=== PATIENT | male | born 1965 | race Caucasian/White ===

== ENCOUNTER 2018-12-12 09:24 | Inpatient (IN) ==
[2018-12-12] MEDS ORDERED: Albuterol 2.5 MG/3 ML NEBULIZER IH ONE (10:00)
[2018-12-12] MEDS ORDERED: CeFAZolin Syr 2,000MG/20 ML 2,000 MG/20 ML SYRINGE IVPB ONE (10:00)
[2018-12-12] MEDS: Ringers Solution, Lactated 1,000 ML IVC SCH ×2 (10:50→21:00)
--- NOTE | 2018-12-12 10:58 | Anesthesia Evaluation PreOp ---
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) Other Medical History: Diabetes Type II, GERD Anesthesia History: Past Anesthesia, Problems (aspiration) Alcohol Use: none Drug use: none Medications and Allergies DULoxetine [Cymbalta] 60 mg PO DAILY 05/18/15 [History] Dextroamphetamine Sulfate [Dexedrine] 15 mg PO DAILY 05/18/15 [History] Gabapentin [Neurontin] 600 mg PO BID 05/18/15 [History] Torsemide [Demadex] 20 mg PO BID 05/18/15 [History] Ascorbate Calcium [Vitamin C] 500 mg PO DAILY 08/31/15 [History] Potassium Chloride [K-Tab ER] 20 meq PO BID 08/31/15 [History] Albuterol Sulfate [Proair Hfa] 2 puff IH Q4-6H PRN 12/12/18 [History] Amlodipine Besylate 2.5 mg PO DAILY 12/12/18 [History] Budesonide Neb [Pulmicort Neb] 0.25 mg PO BID PRN 12/12/18 [History] Calcium Carbonate [Calcium] 500 mg PO DAILY 12/12/18 [History] Cholecalciferol (Vitamin D3) [Vitamin D] 2,000 unit PO DAILY 12/12/18 [History] Ferrous Gluconate 324 mg PO DAILY 12/12/18 [History] Formoterol Fumarate [Perforomist] 20 mcg IH BID PRN 12/12/18 [History] Hydromorphone (Pf) [Hydromorphone Intrathecal Pump] 1 each IT AD 12/12/18 [History] Lansoprazole [Prevacid] 15 mg PO DAILY 12/12/18 [History] Losartan Potassium 50 mg PO DAILY 12/12/18 [History] Metformin HCl [Fortamet] 1,000 mg PO BID 12/12/18 [History] Metoprolol Succinate [Toprol Xl] 100 mg PO BID 12/12/18 [History] Testosterone 4 pump TP DAILY 12/12/18 [History] Tiotropium [place] [Spiriva Respimat] 2 puff PO DAILY 12/12/18 [History] Allergy/AdvReac Type Severity Reaction Status Date / Time silver Allergy Blister Verified 12/12/18 11:14 terbinafine Allergy Rash Verified 12/12/18 11:14 MAXORB Allergy Blister Uncoded 12/12/18 11:14 silverdine Allergy Blister Uncoded 12/12/18 11:14 - Meds/Allergy Pre-op Review Medications Reviewed: Yes Allergies Reviewed: Yes Beta Blockers on Current Med List: Yes If Beta Blockers taken, Date/Time (Last Dose taken): 12/12/2018 at 0600 Anesthesia Results - Labs Laboratory Tests 12/02/18 12/02/18 12/04/18 09:34 09:34 10:35 WBC 6.5 Hgb 10.4 L Hct 33.5 L Plt Count 286 PT 10.5 INR 0.9 APTT 35.4 Sodium 139 Potassium 4.2 BUN 19 Creatinine 0.66 L - Imaging EKG: report reviewed (12/04/2018 sinus rhythm 4 12/04/2018 SINUS RHYTHM) Anesthesia Exam O2 Sat Height 1.8 m Height 1.8 m Weight 111.13 kg Weight 111.13 kg O2 Sat by Pulse Oximetry 95 O2 Sat by Pulse Oximetry 95 O2 Sat by Pulse Oximetry 95 Vital Signs Temp Pulse Resp BP Pulse Ox 97.8 F 82 18 112/74 95 12/12/18 10:00 12/12/18 10:00 12/12/18 10:00 12/12/18 10:00 12/12/18 10:00 Blood Glucose* 122 Height: 5'11'' Weight: 245 lbs NPO (# of Hours): 8 Pain Scale: 6 (left arm) Pain Scale Used: Numeric (1 - 10) - HEENT Pupil (Motor): EOMI Mallampati: II Teeth: Edentulous Denture Type: Upper: Complete, Lower: Complete Oral Opening: Greater than 3 - CERAMICS ENGINEER LOC: Oriented CERAMICS ENGINEER Motor: Normal RUE, Normal RLE, Normal LLE, Normal Face, Deficit LUE CERAMICS ENGINEER Sensory: Normal: RUE, Face, Deficit: LUE (hypersensitive), RLE, LLE - Cardiac Rhythm: Regular Murmur: None - Pulmonary Breath Sounds: bilateral Clear Respiratory Effort: Symmetrical Anesthesia Assess/Plan ASA Score: 4 Level of consciousness: Cooperative, Oriented, Tranquil Anesthetic Plan: General Monitoring Plan: Standard Monitors Recovery Plan: PACU
[2018-12-12] MEDS ORDERED: Lidocaine -MPF 4% 5 ML AMPUL ONE (11:59)
[2018-12-12] MEDS ORDERED: *HR* Succinylcholine 200 MG/10 ML VIAL IVP ONE ×2 (11:59→17:39)
[2018-12-12] MEDS ORDERED: Lidocaine -MPF 2% 2 ML VIAL ONE (11:59)
[2018-12-12] MEDS ORDERED: *HR* Propofol 200 MG/20 ML VIAL IVP ONE ×3 (12:00→17:39)
[2018-12-12] MEDS ORDERED: *HR* FentaNYL (PF) 100 MCG/2 ML VIAL ONE (12:00)
[2018-12-12] MEDS ORDERED: *HR* Midazolam HCl 2 MG/2 ML VIAL ONE (12:00)
[2018-12-12] MEDS ORDERED: Ondansetron 4 MG/2 ML VIAL IVP ONE (12:09)
[2018-12-12] MEDS ORDERED: *HR* HYDROmorphone (PF) 1 MG/ML SYRINGE IVP PRN (12:09)
[2018-12-12] MEDS ORDERED: *HR* OxyCODONE Immed Rel 5 MG TABLET PO PRN (12:09)
[2018-12-12] MEDS ORDERED: Bacitracin 50,000 UNIT, Polymyxin B Sulfate 500,000 UNIT, Sodium Chloride IRRigation 1,... IR ONE (12:35)
--- NOTE | 2018-12-12 14:24 | History & Physical Report ---
Date of Encounter: 12/12/18 Time of Encounter: 14:20 24 Hour HP Update - Instructions Instructions: If the History and Physical is less than 30 days old and was completed prior to A.M. admission and or procedure and has NOT been updated on calendar day of procedure please complete this update prior to performing procedure. - Update Patient reports changes in Medical Condition: No Changes in examination, assessment, or condition: No Changes in Medication: No Preop tests/diagnostics Reviewed: Yes Pre-Op MRSA Screen: Negative Surgery Remains Indicated: Yes Consent for Planned Operative Procedure(s) Verified: Yes - Pre-Operative Checklist Preoperative Checklist Indicated: Yes Prophylactic Antibiotic Ordered: Yes Home Medications Include Beta Lesa: Yes Beta Lesa Taken Today (Day of Surgery): Yes Beta Lesa Taken Yesterday (Day Prior to Surgery): Yes Is VTE Prophylaxis Indicated?: Yes (EPCD's)
[2018-12-12] MEDS ORDERED: Lidocaine/EPI 1:100k 2% 20 ML VIAL ONE (14:28)
[2018-12-12] MEDS ORDERED: Isovue-M 200 10 ML VIAL ONE (14:35)
[2018-12-12] MEDS ORDERED: EPHEDrine 50 MG/ML VIAL ONE (15:29)
[2018-12-12] MEDS ORDERED: *HR* PHENYLEPHRINE 1,000 MCG/10 ML SYRINGE IVP ONE (15:55)
[2018-12-12] MEDS ORDERED: Ondansetron 4 MG/2 ML VIAL IVP PRN (17:22)
[2018-12-12] MEDS ORDERED: Naloxone 0.4 MG/ML INJ IVP PRN (17:24)
[2018-12-12] MEDS ORDERED: Acetaminophen 325 MG TABLET PO PRN (17:24)
[2018-12-12] MEDS ORDERED: Naloxone 0.4 MG/ML INJ ONE ×2 (17:27→19:49)
--- NOTE | 2018-12-12 17:30 | Internal Med History&Physical ---
Date of Encounter: 12/12/18 Time of Encounter: 17:27 Internal Medicine - H&P: HPI Chief complaint: Respiratory distress Admitted From: Direct Admit Plans for Post Hospital Care: Home History of present illness: Mr. Vargas is a 53 year old male with history of COPD on chronic O2 2-3 L, diabetes, hypertension, chronic venous insufficiency, GERD, chronic back pain, who presented to the outpatient surgery suite and underwent replacement on intrathecal pump by Dr. Miranda. He underwent general anesthesia and was intubated for the procedure. Apparently was extubated post op. Was re-intubated as he was hypoxic. Eventually extubated again but remained hypoxic and not waking up. We were called to admit the patient to the hospitalist service. I went to evaluate the patient and found out that he had received 100 g of fentanyl as well as some IV Versed although not exactly sure how much. I asked that the patient be given Narcan and he was given a couple doses with some response. He was agitated when he woke up but was not following commands. He continued to be drowsy and at that point I asked to give another dose of Narcan as well as a dose of 0.2 mg flumazenil. In the meantime, I asked for an ABG and it came back with a PH of 7.08 and pCO2 of 122, pO2 78 and bicarb 36. I thought about intubating him at that point and asked for it to be done. By the time everything was set up the patient was much more awake and less agitated and his heart rate was improving and he was following commands on bipap. At that point, I asked for a repeat ABG before we intubate. Past Med Surg Social Fam HX - Past Medical History Medical history: asthma, COPD, diabetes, GERD, hyperlipidemia, hypertension, other Additional medical history: RSD, home 02, CPAP, SENA, vit D deficiency,. Emphysema. fatty liver Psychiatric history: depression - Past Surgical History Surgical History: cholecystectomy, other Additional surgical history: pain pump-dilaudid, left wrist sx, stimulator - Social History Smoking Status: Never smoker Smokeless Tobacco Status: No Alcohol use: none Drug use: none - Family History Father Living Status: Still Living Hx Family Cardiac Disorders: Yes Hx Family Endocrine Disorder: Yes Mother Living Status: Internal Medicine - H&P: Meds DULoxetine [Cymbalta] 60 mg PO DAILY 05/18/15 [History] Gabapentin [Neurontin] 600 mg PO BID 05/18/15 [History] RX: Dextroamphetamine Sulfate [Dexedrine] 15 mg PO DAILY 05/18/15 [History] RX: Torsemide [Demadex] 20 mg PO BID 05/18/15 [History] RX: Ascorbate Calcium [Vitamin C] 500 mg PO DAILY 08/31/15 [History] RX: Potassium Chloride [K-Tab ER] 20 meq PO BID 08/31/15 [History] Albuterol Sulfate [Proair Hfa] 2 puff IH Q4-6H PRN 12/12/18 [History] Amlodipine Besylate 2.5 mg PO DAILY 12/12/18 [History] Calcium Carbonate [Calcium] 500 mg PO DAILY 12/12/18 [History] Cholecalciferol (Vitamin D3) [Vitamin D] 2,000 unit PO DAILY 12/12/18 [History] Ferrous Gluconate 324 mg PO DAILY 12/12/18 [History] Formoterol Fumarate [Perforomist] 20 mcg IH BID PRN 12/12/18 [History] Hydromorphone (Pf) [Hydromorphone Intrathecal Pump] 1 each IT AD 12/12/18 [History] Lansoprazole [Prevacid] 15 mg PO DAILY 12/12/18 [History] Losartan Potassium 50 mg PO DAILY 12/12/18 [History] Metformin HCl [Fortamet] 1,000 mg PO BID 12/12/18 [History] Metoprolol Succinate [Toprol Xl] 100 mg PO BID 12/12/18 [History] RX: Budesonide Neb [Pulmicort Neb] 0.25 mg PO BID PRN 12/12/18 [History] Testosterone 4 pump TP DAILY 12/12/18 [History] Tiotropium [place] [Spiriva Respimat] 2 puff PO DAILY 12/12/18 [History] Allergy/AdvReac Type Severity Reaction Status Date / Time silver Allergy Blister Verified 12/12/18 11:14 terbinafine Allergy Rash Verified 12/12/18 11:14 MAXORB Allergy Blister Uncoded 12/12/18 11:14 silverdine Allergy Blister Uncoded 12/12/18 11:14 ROS unobtainable: due to mental status All Systems PM: A 10-system review of systems was performed and is negative for pertinent findings except as documented above in the HPI. - Constitutional Vitals: Temp Pulse Resp BP Pulse Ox 99.3 F 105 29 162/97 88 12/12/18 17:13 12/12/18 17:23 12/12/18 17:23 12/12/18 17:23 12/12/18 17:23 Exam: GEN: Severely distressed and agitated HEENT: AT, NC, No cyanosis, oral mucosa is moist, No JVD Lymphatics: No lymphadenoapthy Eyes: Extrocular muscles intact, anicteric CVS:Tachycardic. S1, S2, No m/r/g RESP: Significantly Diminished with scattered crackles. ABD: Soft, NT, ND, +BS EXT: 1+ edema, however these are wrapped. No rashes, 2+ DP NEURO: Confused and not following commands. Psych: Cooperative, Not anxious or depressed Internal Med - H&P Results - Impressions ITS Impressions Chest X-Ray 12/12/18 00:00 IMPRESSION: 1. Endotracheal tube in satisfactory position. 2. Findings of mild pulmonary edema with trace pleural effusions and pulmonary vascular indistinctness. D/ / 12/12/2018 17:17:33 Felix Soliz MD / josh Interpreting Provider: Felix Soliz MD - Assessment and Plan (1) Acute and chronic respiratory failure ([id number]) Current Visit: Yes Status: Acute Assessment and plan: Patient has baseline bad COPD on chronic O2. He may have been over medicated with sedatives for anesthesia. I have given him 3 total doses of IV narcan and one dose of IV flumazenil .2 mg. He is waking up and is starting to follow commands. Currently on Bipap and satting well in the upper 90s . Initial ABG showed PH 7.08 and pCO2 122. Will get a repeat ABG. If not improving, will intubate him. Patient seems to have baseline bad COPD. Previous PH was normal despite CO2 in the 90s. So I am guessing this CO2 of 122 is not too far from his baseline and I am hoping his repeat ABG would improve. CXR showed some pulmonary vascular congestion. Will give a dose of IV lasix 40 mg x1. 125 mg IV solumedrol x1. consult pulmonary. Basic labs ordered including lactic acid, BNP, BMP, CBC, mag. Qualifiers: Respiratory failure complication: unspecified whether with hypoxia or hypercapnia Qualified Code(s): J96.20 - Acute and chronic respiratory failure, unspecified whether with hypoxia or hypercapnia (2) COPD (chronic obstructive pulmonary disease) Current Visit: No Status: Acute Assessment and plan: With exacerbation. Will give 125 mg IV solu-medrol once. Nebs. Bipap for now. f/u on ABG Qualifiers: COPD type: unspecified COPD Qualified Code(s): J44.9 - Chronic obstructive pulmonary disease, unspecified (3) Diabetes mellitus Current Visit: Yes Status: Acute Assessment and plan: SSI. 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 Will give IV hydralazine 10 mg x1 and resume home meds Qualifiers: Hypertension type: essential hypertension Qualified Code(s): I10 - Essential (primary) hypertension (5) Venous insufficiency of both lower extremities Current Visit: Yes Status: Acute Assessment and plan: chronic. Has Lower ext edema. (6) DVT prophylaxis Current Visit: No Status: Acute Assessment and plan: heparin SQ - Time Spent With Patient Critical care time spent 75 minutes
[2018-12-12] MEDS ORDERED: Furosemide 40 MG/4 ML VIAL IVP ONE (17:33)
[2018-12-12 17:34] LABS: ABG Base Excess 2 mEq/L (-2 to 3); ABG HCO3 36 mEq/L (21-27); ABG Oxygen Saturation 87 % (95-98); ABG PCO2 122 mmHg (35-45); ABG PH 7.08 pH Units (7.32-7.45); ABG PO2 78 mmHg (85-104); ABG TCO2 40 mEq/L (20-26); Blood Gas PEEP 6 cm H2O
[2018-12-12] MEDS ORDERED: methylPREDNISolone 125 MG/2 ML VIAL IVP ONE (17:36)
[2018-12-12] MEDS ORDERED: Dextrose Gel 15 GM/37.5 ML TUBE PO PRN ×2 (17:38)
[2018-12-12] MEDS ORDERED: *HR* Dextrose 50 % in Water (Syg) 50 ML SYRINGE IVP PRN (17:38)
[2018-12-12] MEDS ORDERED: D5% in Water 1,000 ML IVC PRN (17:38)
[2018-12-12] MEDS ORDERED: MethylPREDNISolone 40 MG/ML VIAL ONE ×2 (17:46→17:48)
[2018-12-12] MEDS ORDERED: Furosemide 40 MG/4 ML VIAL ONE (17:46)
--- NOTE | 2018-12-12 17:49 | Discharge Summary ---
Outpatient Proc Discharge Plan - Plan Additional Instructions: WOUND CARE INSTRUCTIONS FOLLOWING IMPLANTATION 1. Remove the TOP dressing ONLY tomorrow. The BOTTOM dressing is PRINEO. This MESH acts like a "scab" and will fall off on its own. Do not scrub this off. If the mesh peels up on the edge, carefully TRIM the loose end with a small scissor, but BE CARE NOT TO CONTAMINATE THE SURGICAL WOUND. 2. Do not allow direct pressure over the wound. Please keep the wound padded while seated or laying flat. A soft pillow while driving or sitting will suffice. 3. YOU MAY SHOWER TOMORROW, but do not soak the wound. No baths, pools or hot tubs until physician clearance given. Cleanse the wound with gently with antibacterial soap (i.e., DIAL GOLD bar soap), rinse and pat dry lightly with a clean towel. 4. Use the pain medication ONLY DIRECTED. MAKE SURE YOU READ THE LABEL ON THE PILL BOTTLE. DO NOT USE OTHER PAIN MEDICATION IN YOUR POSSESSION UNLESS YOU ARE INSTRUCTED TO DO SO BY DR. WISE. Do not use the pain medication and drive or operated heavy machinery. 5. FOR DEVICE RELATED ISSUES, please contact your company sales representative cash registers. If you ever are not acknowledged by a company for any reason, PLEASE NOTIFY OUR OFFICE. IF FOR ANY REASON YOU EXPERIENCE AN EMERGENCY, CALL 911 OR GO TO THE NEAREST EMERGENCY ROOM If redness, swelling, fever, chills or malaise develops, please call our office IMMEDIATELY OR GO TO THE NEAREST EMERGENCY ROOM. If hives, itching or difficulty breathing occurs CALL 911 Please keep scheduled follow up appointment for the wound check. [facility] [phone] [facility] [phone] [facility] [address] [place] [address] [address] [place], [place] [address] [facility] [address] [place], [place] [address] [phone] [facility] [address] [place], [place] [address] [phone] [facility] [address] [place], [place] [address] [phone] [facility] [address] [place] [address] [place], [place] [address] [phone] [place], [place] [id number] [phone] [facility] [address] [place], [place] [address] [phone] [facility] - [address] [address] [phone] Home Medications: DULoxetine [Cymbalta] 60 mg PO DAILY 05/18/15 [History] Dextroamphetamine Sulfate [Dexedrine] 15 mg PO DAILY 05/18/15 [History] Gabapentin [Neurontin] 600 mg PO BID 05/18/15 [History] Torsemide [Demadex] 20 mg PO BID 05/18/15 [History] Ascorbate Calcium [Vitamin C] 500 mg PO DAILY 08/31/15 [History] Potassium Chloride [K-Tab ER] 20 meq PO BID 08/31/15 [History] Albuterol Sulfate [Proair Hfa] 2 puff IH Q4-6H PRN 12/12/18 [History] Amlodipine Besylate 2.5 mg PO DAILY 12/12/18 [History] Budesonide Neb [Pulmicort Neb] 0.25 mg PO BID PRN 12/12/18 [History] Calcium Carbonate [Calcium] 500 mg PO DAILY 12/12/18 [History] Cholecalciferol (Vitamin D3) [Vitamin D] 2,000 unit PO DAILY 12/12/18 [History] Ferrous Gluconate 324 mg PO DAILY 12/12/18 [History] Formoterol Fumarate [Perforomist] 20 mcg IH BID PRN 12/12/18 [History] Hydromorphone (Pf) [Hydromorphone Intrathecal Pump] 1 each IT AD 12/12/18 [His tory] Lansoprazole [Prevacid] 15 mg PO DAILY 12/12/18 [History] Losartan Potassium 50 mg PO DAILY 12/12/18 [History] Metformin HCl [Fortamet] 1,000 mg PO BID 12/12/18 [History] Metoprolol Succinate [Toprol Xl] 100 mg PO BID 12/12/18 [History] Testosterone 4 pump TP DAILY 12/12/18 [History] Tiotropium [place] [Spiriva Respimat] 2 puff PO DAILY 12/12/18 [History]
--- NOTE | 2018-12-12 17:53 | Pain Management Procedure Note ---
Date of procedure: 12/12/18 Pre-op diagnosis: Complex regional pain syndrome type I left upper extremity Post-op diagnosis: same Procedure: Preoperative diagnosis: Complex regional pain syndrome type I left upper extremity Postoperative diagnose: Same Procedure: 1. Replacement of intrathecal drug delivery system pump (SynchroMed 2, Medtronic) Indication: The patient should undergo intrathecal pump replacement because the patient benefits as evidenced by improved pain control but function is limited due to the underlying disease process. The patient desires reimplantation of the new pump as the current system pump is at end of life. There are no contraindications to the procedure such as sepsis or coagulopathy. Clinic note: 53-year-old with a worker's comp related injury who has an intractable case of complex regional pain syndrome of the left upper extremity. The patient is on multimodal therapy to include spinal cord stimulation as well as intrathecal drug delivery. Patient's past medical history, surgical history, medications and allergies were all reviewed prior to implantation. The risks, benefits and alternatives to the procedure were explained to the patient previously and informed consent was obtained. Procedure in detail: Patient was taken to the operating room and connected to standard ASA monitors. The patient's anesthesia care team induced general anesthesia. Patient was then rotated into a prone padded position on the pain management operation table. The patient was sterilely prepped and draped in a standard surgical fashion. Timeout was then performed per hospital protocol. Fluoroscopy was used to confirm site of indwelling intrathecal drug delivery pump. The old scar was identified and a line was made over top of it. 10 lidocaine 2% with 1 and 200,000 epinephrine was administered into the subcutaneous tissue into the area. A 15 blade was used to make a horizontal incision over the old scar. Weitlaners and Metzenbaums were used to blunt dissected and expose the pump. The pump was then explanted and sent to pathology as a gross specimen. The catheter was then disconnected. Free flow of cerebral spinal fluid was noted. 0.2 mL of spinal fluid was drained. I then obtained the prefilled new SynchroMed 2 pump containing 20 mL of opioid therapy and attached at the catheter infusion port. The wound was copiously irrigated with antibiotic impregnated normal saline. I then implanted the pump after I copiously irrigated the pocket. Primary closure ensued. 0-Stratofix and 2-0 Stratofix was used to close the deep and superficial fascial layers, respectively. A 4-0 monocryl closed the skin layer. Prineo was used to seal the skin after it was cleansed and draped. After dried, a sterile 4x4 and tegaderm was used to cover the area. The patient was then undraped, gradually extubated and taken to rec overy where the patient was observed. The plan is to keep the follow up wound check appointment. Anesthesia: GETA Surgeon: Gonzales Miranda Was there an assistant technician present: No Estimated blood loss (cc): 5 Specimen: [id number] Pathology: none sent Condition: stable Disposition: PACU
[2018-12-12 18:08] LABS: Basophils # 0.1 K/mcL (0.0-0.2); Basophils % 0.4 %; Eosinophils # 0.1 K/mcL (0.0-0.6); Immature Granulocytes % 0.8 % (0-4); Immature Platelets 3.2 % (1.1-6.1); Lymphocytes # 1.4 K/mcL (0.6-4.6); Mean Corpuscular HGB Conc 30.6 g/dL (31.6-35.5); Mean Platelet Volume 9.6 fL (9.4-12.4); Monocytes # 0.8 K/mcL (0.0-1.3); Monocytes % 6.2 %; Neutrophils # 10.2 K/mcL (1.6-8.9); Platelet Count 346 K/mcL (140-400); Red Blood Count 3.79 M/mcL (4.19-5.50); Red Cell Distribution Width 13.4 % (11.5-14.5); Segmented Neutrophils % 80.6 %
[2018-12-12 18:12] LABS: ABG Base Excess 8 mEq/L (-2 to 3); ABG HCO3 39 mEq/L (21-27); ABG Oxygen Saturation 89 % (95-98); ABG PCO2 84 mmHg (35-45); ABG PH 7.27 pH Units (7.32-7.45); ABG PO2 69 mmHg (85-104); ABG TCO2 41 mEq/L (20-26); Blood Gas PEEP 8 cm H2O; Blood Gas Respiration Rate 10; Blood Gas VT 550 cc
--- NOTE | 2018-12-12 18:33 | Anesthesia Evaluation Post Op ---
Date of Encounter: 12/12/18 Time of Encounter: 18:27 - Vital Signs Vital Signs: Vital Signs/O2 Sat, Most Current Temp Pulse Resp BP Pulse Ox 98 F 93 20 129/79 97 12/12/18 17:53 12/12/18 18:03 12/12/18 18:03 12/12/18 18:03 12/12/18 18:03 Laboratory Tests 12/12/18 18:09 ABG pH 7.27 L D ABG pCO2 84 H* D ABG pO2 69 L ABG HCO3 39 H ABG Total CO2 41 H ABG O2 Saturation 89 L ABG Base Excess 8 H Blood Gas improved from pH 7.08 drawn earlier Laboratory Tests 12/12/18 12/12/18 17:30 18:09 ABG pH 7.08 L* 7.27 L D - Lungs Lungs: Wheezes - Airway Airway: Non-obstructed - Cardiovascular Regular Rate - Mental Status Mental Status: Alert & Oriented, Answers Appropriately - Pain Pain Scale: 0 Pain Scale used: Numeric (1 - 10) - Nausea Vomiting Nausea Vomiting: Not Present - Hydration Hydration: NPO, Giraldo catheter - Discharge PostOp Status: Transfer Patient to floor (Patient to be transferred on BIPAP to [facility])
[2018-12-12] MEDS: Insulin LISPRO 300 UNITS/3 ML VIAL SQ SCH ×2 (19:10→23:12)
[2018-12-12] MEDS ORDERED: 0.9 % Sodium Chloride 500 ML IVC ONE (19:21)
[2018-12-12 19:25] LABS: BUN/Creatinine Ratio 22 (6-26); Blood Urea Nitrogen 19 mg/dL (6-20); Calcium 8.7 mg/dL (8.6-10.3); Carbon Dioxide 27 mEq/L (23-29); Chloride 93 mEq/L (98-107); Glucose 255 mg/dL (70-105); Magnesium 1.5 mg/dL (1.6-2.6); Osmolality,Calculated 299 (280-300); Potassium 3.7 mEq/L (3.5-5.1); Sodium 139 mEq/L (136-145); eGFR For Non-African Americans > 60 (> 60)
[2018-12-12] MEDS ORDERED: 0.9 % Sodium Chloride 500 ML ONE (19:31)
--- NOTE | 2018-12-12 19:48 | Anesthesia Progress Note ---
Date of Encounter: 12/12/18 Time of Encounter: 17:15 Anesthesia Note - Note Note: Patient semi-combative, desaturating, and not following commands. 200 mcg naloxone given in 2 divided doses over a period of 3 min given + 0.2mg flumazenil. Noticeable improvement in patient's mental status. 12/12/18 19:46 Reason for Cancellation: Other
[2018-12-12] MEDS: Ipratropium/Albuterol Neb 3 ML IH SCH (21:38)
[2018-12-12] MEDS: *HR* Heparin 5,000 UNIT/ML VIAL SQ SCH (22:15)
[2018-12-12] MEDS: methylPREDNISolone 125 MG/2 ML VIAL IVP SCH (23:02)
[2018-12-13] MEDS: Ipratropium/Albuterol Neb 3 ML IH SCH ×2 (04:33→11:31)
[2018-12-13 05:51] LABS: Hematocrit 36.2 % (37.5-50.1); Hemoglobin 11.5 g/dL (12.9-16.9); Immature Granulocytes % 0.5 % (0-4); Lymphocytes # 0.8 K/mcL (0.6-4.6); Lymphocytes % 12.5 %; Mean Corpuscular HGB Conc 31.8 g/dL (31.6-35.5); Mean Corpuscular Hemoglobin 29.2 pg (28.0-33.3); Mean Corpuscular Volume 91.9 fL (83.0-100.0); Monocytes # 0.1 K/mcL (0.0-1.3); Monocytes % 1.4 %; Neutrophils # 5.6 K/mcL (1.6-8.9); Platelet Count 329 K/mcL (140-400); Red Blood Count 3.94 M/mcL (4.19-5.50); Red Cell Distribution Width 13.5 % (11.5-14.5); Segmented Neutrophils % 85.6 %
[2018-12-13 06:04] LABS: BUN/Creatinine Ratio 23 (6-26); Blood Urea Nitrogen 17 mg/dL (6-20); Calcium 8.9 mg/dL (8.6-10.3); Carbon Dioxide 38 mEq/L (23-29); Chloride 93 mEq/L (98-107); Glucose 210 mg/dL (70-105); Magnesium 1.9 mg/dL (1.6-2.6); Osmolality,Calculated 294 (280-300); Potassium 3.8 mEq/L (3.5-5.1); Sodium 138 mEq/L (136-145); eGFR For Non-African Americans > 60 (> 60)
[2018-12-13] MEDS: *HR* Heparin 5,000 UNIT/ML VIAL SQ SCH (06:17)
[2018-12-13] MEDS: Insulin LISPRO 300 UNITS/3 ML VIAL SQ SCH ×2 (06:19→13:02)
[2018-12-13 06:30] LABS: ABG Base Excess 13 mEq/L (-2 to 3); ABG HCO3 41 mEq/L (21-27); ABG Oxygen Saturation 95 % (95-98); ABG PCO2 70 mmHg (35-45); ABG PH 7.38 pH Units (7.32-7.45); ABG PO2 83 mmHg (85-104); ABG TCO2 44 mEq/L (20-26)
[2018-12-13] MEDS: methylPREDNISolone 125 MG/2 ML VIAL IVP SCH (07:38)
--- NOTE | 2018-12-13 09:21 | Discharge Summary ---
Orders not resulted at time of discharge: Pending orders 12/12/18 15:35 XR KUB [XR] Routine 12/12/18 16:25 Surgical Pathology [PTH] Routine 12/13/18 07:36 Lactic Acid Stat Date of Encounter: 12/13/18 Time of Encounter: 09:19 - Discharge Diagnosis (1) Overdose of analgesic Priority: Primary Status: Acute Qualifiers: Encounter type: initial encounter Injury intent: accidental or unintentional Qualified Code(s): T39.91XA - Poisoning by unspecified nonopioid analgesic, antipyretic and antirheumatic, accidental (unintentional), initial encounter (2) Anesthesia complication Priority: Primary Status: Acute Qualifiers: Encounter type: initial encounter Qualified Code(s): T41.45XA - Adverse effect of unspecified anesthetic, initial encounter (3) Acute and chronic respiratory failure ([id number]) Priority: Primary Status: Acute Qualifiers: Respiratory failure complication: unspecified whether with hypoxia or hypercapnia Qualified Code(s): J96.20 - Acute and chronic respiratory failure, unspecified whether with hypoxia or hypercapnia (4) Lactic acidosis Priority: Primary Status: Acute (5) COPD (chronic obstructive pulmonary disease) Priority: Secondary Status: Acute Qualifiers: COPD type: unspecified COPD Qualified Code(s): J44.9 - Chronic obstructive pulmonary disease, unspecified (6) Diabetes mellitus Priority: Secondary Status: Acute Qualifiers: Diabetes mellitus type: type 2 Diabetes mellitus long-term insulin use: without long-term use Diabetes mellitus complication status: without complication Qualified Code(s): E11.9 - Type 2 diabetes mellitus without complications (7) HTN (hypertension) Priority: Secondary Status: Acute Qualifiers: Hypertension type: essential hypertension Qualified Code(s): I10 - Essential (primary) hypertension (8) Venous insufficiency of both lower extremities Priority: Primary Status: Acute Hospital course: Mr. Vargas is a 53 year old male with history of COPD on chronic O2 2-3 L, diabetes, hypertension, chronic venous insufficiency, GERD, chronic back pain, who presented to the outpatient surgery suite and underwent replacement on intrathecal pump by Dr. Miranda. He underwent general anesthesia and was intubated for the procedure. Apparently was extubated post op. Was re-intubated as he was hypoxic. Eventually extubated again but remained hypoxic and not waking up. We were called to admit the patient to the hospitalist service. I went to evaluate the patient and found out that he had received 100 g of fentanyl as well as some IV Versed although not exactly sure how much. I asked that the patient be given Narcan and he was given a couple doses with some response. He was agitated when he woke up but was not following commands. He continued to be drowsy and at that point I asked to give another dose of Narcan as well as a dose of 0.2 mg flumazenil. In the meantime, I asked for an ABG and it came back with a PH of 7.08 and pCO2 of 122, pO2 78 and bicarb 36. I thought about intubating him at that point and asked for it to be done. By the time everything was set up the patient was much more awake and less agitated and his heart rate was improving and he was following commands on bipap. At that point, I asked for a repeat ABG and it came back with PH of 7.27, PCO2 84, PO2 69, bica rbs 39. At that point, I elected not to intubate him and he was mentally better and I admitted him to . He had elevated lactic acid due to hypoxia which corrected with better oxygenation and only 500 cc NS bolus. He was back to himself on 3L NC O2 the following day and was discharged. I did give the patient a push of 125 mg IV solu-medrol during the initial critical phase and gave him 40 mg IV lasix as well as I saw some pulmonary vascular congestion. I did not continue those after that. He was discharged on 12/13/2018. - Time Spent with Patient Total time spent providing and/or coordinating discharge services: Time spent: Greater than 30 minutes - Discharge Medications Prescriptions: Continue DULoxetine [Cymbalta] 60 mg PO DAILY Torsemide [Demadex] 20 mg PO BID Dextroamphetamine Sulfate [Dexedrine] 15 mg PO DAILY Gabapentin [Neurontin] 600 mg PO BID Potassium Chloride [K-Tab ER] 20 meq PO BID Ascorbate Calcium [Vitamin C] 500 mg PO DAILY Albuterol Sulfate [Proair Hfa] 2 puff IH Q4-6H PRN PRN Reason: Shortness Of Breath Amlodipine Besylate 2.5 mg PO DAILY Budesonide Neb [Pulmicort Neb] 0.25 mg PO BID PRN PRN Reason: Shortness Of Breath Calcium Carbonate [Calcium] 500 mg PO DAILY Cholecalciferol (Vitamin D3) [Vitamin D3] 2,000 unit PO DAILY Ferrous Gluconate 324 mg PO DAILY Formoterol Fumarate [Perforomist] 20 mcg IH BID PRN PRN Reason: BREATHING Hydromorphone (Pf) [Hydromorphone Intrathecal Pump] 1 each IT AD Lansoprazole [Prevacid] 15 mg PO DAILY Losartan Potassium 50 mg PO DAILY Metformin HCl [Fortamet] 1,000 mg PO BID Metoprolol Succinate [Toprol Xl] 100 mg PO BID Testosterone 4 pump TP DAILY Tiotropium [place] [Spiriva Respimat] 2 puff PO DAILY Home Medications: DULoxetine [Cymbalta] 60 mg PO DAILY 05/18/15 [History] Dextroamphetamine Sulfate [Dexedrine] 15 mg PO DAILY 05/18/15 [History] Gabapentin [Neurontin] 600 mg PO BID 05/18/15 [History] Torsemide [Demadex] 20 mg PO BID 05/18/15 [History] Ascorbate Calcium [Vitamin C] 500 mg PO DAILY 08/31/15 [History] Potassium Chloride [K-Tab ER] 20 meq PO BID 08/31/15 [History] Albuterol Sulfate [Proair Hfa] 2 puff IH Q4-6H PRN 12/12/18 [History] Amlodipine Besylate 2.5 mg PO DAILY 12/12/18 [History] Budesonide Neb [Pulmicort Neb] 0.25 mg PO BID PRN 12/12/18 [History] Calcium Carbonate [Calcium] 500 mg PO DAILY 12/12/18 [History] Cholecalciferol (Vitamin D3) [Vitamin D3] 2,000 unit PO DAILY 12/12/18 [History] Ferrous Gluconate 324 mg PO DAILY 12/12/18 [History] Formoterol Fumarate [Perforomist] 20 mcg IH BID PRN 12/12/18 [History] Hydromorphone (Pf) [Hydromorphone Intrathecal Pump] 1 each IT AD 12/12/18 [Histo ry] Lansoprazole [Prevacid] 15 mg PO DAILY 12/12/18 [History] Losartan Potassium 50 mg PO DAILY 12/12/18 [History] Metformin HCl [Fortamet] 1,000 mg PO BID 12/12/18 [History] Metoprolol Succinate [Toprol Xl] 100 mg PO BID 12/12/18 [History] Testosterone 4 pump TP DAILY 12/12/18 [History] Tiotropium [place] [Spiriva Respimat] 2 puff PO DAILY 12/12/18 [History] Allergies/Adverse Reactions: Allergy/AdvReac Type Severity Reaction Status Date / Time silver Allergy Blister Verified 12/12/18 11:14 terbinafine Allergy Rash Verified 12/12/18 11:14 MAXORB Allergy Blister Uncoded 12/12/18 11:14 silverdine Allergy Blister Uncoded 12/12/18 11:14 Date of admission: 12/12/18 18:42 Primary care physician: Yury Betts MD Consults: 12/12/18 17:23 Consult to Pulmonology [CONS] Routine Consulting Provider: [facility] [place] Reason for Consult: respiratory failure Call Completed: No - Constitutional Vitals: Temp Pulse Resp BP Pulse Ox 97.8 F 99 18 128/90 95 12/13/18 07:34 12/13/18 07:34 12/13/18 07:34 12/13/18 07:34 12/13/18 07:45 Exam: GEN: NAD CVS: RRR. S1, S2, No m/r/g RESP: diminished ABD: Soft, NT, ND, +BS EXT: No edema. 2+ DP. No rashes NEURO: Nonfocal - Patient Status Disposition: Home, Self-Care Condition: Fair Overall status at discharge: patient is progressing back to baseline - Discharge Instructions Instructions: Acute Respiratory Distress Syndrome (DC), Diabetes Mellitus Type 2 in Adults (DC), Chronic Hypertension (DC) Follow Up With: Yury Betts MD [Primary Care Provider] - 12/29/18 8:45 am Freida Avilez, KENYON [Advanced Practice Nurse] - 12/29/18 10:30 am Gonzales Miranda DO [Partnered Physician] - 12/19/18 9:00 am Additional Instructions: WOUND CARE INSTRUCTIONS FOLLOWING IMPLANTATION 1. Remove the TOP dressing ONLY tomorrow. The BOTTOM dressing is PRINEO. This MESH acts like a "scab" and will fall off on its own. Do not scrub this off. If the mesh peels up on the edge, carefully TRIM the loose end with a small scissor, but BE CARE NOT TO CONTAMINATE THE SURGICAL WOUND. 2. Do not allow direct pressure over the wound. Please keep the wound padded while seated or laying flat. A soft pillow while driving or sitting will suffice. 3. YOU MAY SHOWER TOMORROW, but do not soak the wound. No baths, pools or hot tubs until physician clearance given. Cleanse the wound with gently with antibacterial soap (i.e., DIAL GOLD bar soap), rinse and pat dry lightly with a clean towel. 4. Use the pain medication ONLY DIRECTED. MAKE SURE YOU READ THE LABEL ON THE PILL BOTTLE. DO NOT USE OTHER PAIN MEDICATION IN YOUR POSSESSION UNLESS YOU ARE INSTRUCTED TO DO SO BY DR. MIRANDA. Do not use the pain medication and drive or operated heavy machinery. 5. FOR DEVICE RELATED ISSUES, please contact your company business center representative. If you ever are not acknowledged by a company for any reason, PLEASE NOTIFY OUR OFFICE. IF FOR ANY REASON YOU EXPERIENCE AN EMERGENCY, CALL 911 OR GO TO THE NEAREST EMERGENCY ROOM If redness, swelling, fever, chills or malaise develops, please call our office IMMEDIATELY OR GO TO THE NEAREST EMERGENCY ROOM. If hives, itching or difficulty breathing occurs CALL 911 Please keep scheduled follow up appointment for the wound check. [facility] [phone] [place] [facility] [phone] [place] [facility] [address] [place] [address] [address] [place], [place] [address] [facility] [address] [place], [place] [address] [phone] [facility] [address] [place], [place] [address] [phone] [facility] [address] [place], [place] [address] [phone] [facility] [address] [place] [address] [place], [place] [address] [phone] [facility] [address] [place] [address] [phone] [place], [place] [address] [phone] [address] [phone] - Diet and Activity Activity: increase activity as tolerated, wear oxygen at all times Diet: diabetic diet
[2018-12-13 12:12] VITALS: BP 146/95
== END 2018-12-13 13:05 | disposition home or self-care (01) | DRG 907 ==
LOC: 2NNU 09:24 → SAMDAY 09:24 → OBSVTOIN 18:42
PROVIDERS: ADMIT Internal Medicine; ATTEND Internal Medicine